=== PATIENT | female | born 2000 | race Caucasian/White ===

== ENCOUNTER 2019-05-09 09:23 | Emergency (ER) | payer OTHER ==
[2019-05-09 09:48] VITALS: BP 120/58; PULSE 93; TEMP 98; BMI 32.8
--- NOTE | 2019-05-09 09:59 | PDOC ---
History of Present Illness <Lindsay Fox - Last Filed: 05/09/19 10:41> - History of Present Illness Initial Comments: 05/09/19 10:16 19 yo F no PMH, , presenting with vaginal bleeding. Notes that her last menstrual period was 04/08/2019. About one week ago, patient felt nauseous and became concerned that she might be , but urine was negative. Today, patient passed a clot and thought she might be having a miscarriage ( although repeat urine was again negative at home). When asked whether this might be her period, patient states that she currently has vaginal pain, which she never has during her periods. Patient recently moved to the area, has first appointment with her new PCP this upcoming Monday. Denies CP, SOB, abd pain, fevers/chills, N/V, urinary changes. <Aleida Turcios - Last Filed: 05/09/19 10:50> - General Chief Complaint: Vaginal Bleeding Stated Complaint: POSSIBLE MISCARRIAGE Past History <Lindsay Fox - Last Filed: 05/09/19 10:41> - Psycho Social/Smoking Cessation Hx Smoking History: Never smoked Have you smoked in the past 12 months: No Hx Alcohol Use: No Drug/Substance Use Hx: No <Aleida Turcios - Last Filed: 05/09/19 10:50> - Past Medical History Allergies/Adverse Reactions: Allergies Allergy/AdvReac Type Severity Reaction Status Date / Time No Known Allergies Allergy Verified 05/09/19 09:44 Review of Systems - Review of Systems Comments:: 05/09/19 10:40 GENERAL/CONSTITUTIONAL: denies fever, chills, diaphoresis, generalized weakness , malaise, loss of appetite, weight change HEAD, EYES, EARS, NOSE AND THROAT: denies rhinorrhea, nasal congestion, throat pain, throat swelling, difficulty swallowing, mouth swelling, ear pain, eye pain , visual changes NEUROLOGIC: denies headache, focal weakness or paresthesias, dizziness, unsteady gait, seizure, mental status changes, bladder or bowel incontinence CARDIOVASCULAR: denies chest pain, syncope, palpitations, irregular heart rate, lightheadedness, peripheral edema RESPIRATORY: denies cough, shortness of breath, dyspnea with exertion, orthopnea , wheezing, stridor, hemoptysis GASTROINTESTINAL: denies abdominal pain, abdominal distension, nausea, vomiting , diarrhea, constipation, melena, hematochezia GENITOURINARY: endorses crampy vaginal pain. Denies dysuria, frequency, urgency , hesitancy, hematuria, flank pain, genital pain MUSCULOSKELETAL: denies myalgia, arthralgia, joint swelling, back pain, neck pain SKIN: denies rash, itching, pallor HEMATOLOGIC/IMMUNOLOGIC: denies easy bleeding, easy bruising, lymphadenopathy, frequent infections ENDOCRINE: denies unexplained weight gain, unexplained weight loss, heat intolerance, cold intolerance PSYCHIATRIC: denies anxiety, depression, suicidal or homicidal ideation, hallucinations <Aleida Turcios - Last Filed: 05/09/19 10:50> *Physical Exam - Vital Signs Last Vital Signs Temp Pulse Resp BP Pulse Ox 98 F 93 H 18 120/58 L 100 05/09/19 09:44 05/09/19 09:44 05/09/19 09:44 05/09/19 09:44 05/09/19 09:44 <Lindsay Foxgayle - Last Filed: 05/09/19 10:41> - Vital Signs Last Vital Signs Temp Pulse Resp BP Pulse Ox 98 F 93 H 18 120/58 L 100 05/09/19 09:44 05/09/19 09:44 05/09/19 09:44 05/09/19 09:44 05/09/19 09:44 - Physical Exam 05/09/19 10:36 GENERAL: Awake, alert, and fully oriented, in no acute distress. HEAD: Normal with no signs of trauma. EYES: Pupils equal, round and reactive to light, extraocular movements intact, sclera anicteric, conjunctiva clear. No lid lag. EARS, NOSE, THROAT: Ears normal, nares patent, oropharynx clear without exudates. NECK: Normal range of motion, supple without lymphadenopathy or JVD LUNGS: Breath sounds equal, clear to auscultation bilaterally. No wheezes, and no crackles. No accessory muscle use. HEART: Regular rate and rhythm, normal S1 and S2 without murmur, rub or gallop. ABDOMEN: Soft, nontender, non-distended, normoactive bowel sounds, negative guarding, negative rebound : pooled blood in the vault, closed os, no CMT or adnexal tenderness. MUSCULOSKELETAL: Normal range of motion at all joints. No bony deformities or tenderness. No CVA tenderness. UPPER EXTREMITIES: 2+ pulses, warm, well-perfused. No cyanosis. No clubbing. Cap refill <2 seconds. No peripheral edema. LOWER EXTREMITIES: 2+ pulses, warm, well-perfused. No calf tenderness. No peripheral edema. NEUROLOGICAL: Cranial nerves II-XII intact. Normal speech. Normal gait. PSYCHIATRIC: Cooperative. Good eye contact. Appropriate mood and affect. SKIN: Warm, dry, normal turgor, no rashes or lesions noted. <Aleida Turcios - Last Filed: 05/09/19 10:50> ED Treatment Course - ADDITIONAL ORDERS Additional order review: Laboratory Results 05/09/19 05/09/19 10:15 10:15 Urine Color Yellow Urine Appearance Cloudy Urine pH 7.0 Ur Specific [place] 1.025 Urine Protein Trace Urine Glucose (UA) Negative Urine Ketones Negative Urine Blood 3+ H Urine Nitrite Negative Urine Bilirubin Negative Urine Urobilinogen 0.2 Ur Leukocyte Esterase Trace Urine WBC (Auto) 10 Urine RBC (Auto) 19 Urine Casts (Auto) 9 U Epithel Cells (Auto) 10.9 Urine Bacteria (Auto) 145.9 Urine HCG, Qual Negative <Lindsay Fox - Last Filed: 05/09/19 10:41> Medical Decision Making - Medical Decision Making 05/09/19 10:19 Concern for vs intravaginal pathology v UTI v menstruation. - UA/UC/urine 05/09/19 10:37 Urine and UA unremarkable. Will give ibuprofen, recommend ibuprofen/ acetaminophen at home. <Aleida Turcios - Last Filed: 05/09/19 10:50> Discharge <Lindsay Fox - Last Filed: 05/09/19 10:41> - Discharge Information Problems reviewed: Yes - Admission No <Aleida Turcios - Last Filed: 05/09/19 10:50> - Discharge Information Clinical Impression/Diagnosis: Menses painful Condition: Stable Disposition: HOME - Follow up/Referral Referrals: [facility] [Provider Group] ON STAFF,NOT [Primary Care Provider] - - Patient Discharge Instructions Patient Printed Discharge Instructions: DI for Dysmenorrhea Additional Instructions: You were seen with crampy vaginal pain and bleeding. Your urine was negative. This pain is likely due to your period. Please keep your appointment with your new primary care doctor next week, and ensure that he provides you with an OBGYN as well. Take ibuprofen or acetaminophen as needed for pain. Return to the ED if you develop worsening symptoms.
--- NOTE | 2019-05-09 10:04 | PDOC ---
Attending Attestation - Resident Resident Name: TurciosAleida - ED Attending Attestation I have performed the following: I have examined & evaluated the patient, The case was reviewed & discussed with the resident, I agree w/resident's findings & plan - HPI HPI: 05/09/19 10:37 19-year-old female with no significant medical history presenting with general x1 episodes she says when she noticed. Associated with lower pelvic pain and cramping. Her LMP was 04/08/2019, usually regular. She has taken 2 home tests in the last 1 week and both have been negative. No nausea vomiting diarrhea no fevers or chills, no burning urgency or frequency. She is sexually active with her spouse, uses condoms for protection. She is awaiting a new provider to establish care with field crop farmer and plans to get Depo shot for contraception. - Physicial Exam PE: 05/09/19 10:02 Agree with the resident's HPI and PE as documented in the electronic medical record. NAD, well appearing, EOMI, PERRL, nl conjunctiva, anicteric; neck supple. lungs clear, RRR, abdomen soft nontender. no rebound, guarding. Back nontender. ABDI x4, no focal neuro deficits. No peripheral edema. normal color for ethnicity , WW[facility] pelvic exam done by resident see note 05/09/19 10:39 - Medical Decision Making 05/09/19 10:03 Vital Signs Temp Pulse Resp BP Pulse Ox 98 F 93 H 18 120/58 L 100 05/09/19 09:44 05/09/19 09:44 05/09/19 09:44 05/09/19 09:44 05/09/19 09:44 Female : normal external genitalia, no lesions, clear vaginal vault, no CMT, no adnexal tenderness. Smooth and pink cervix, closed. DDx female abdominal pain/VB: menses, ovarian cyst, ovarian torsion, TOA, UTI, pyelonephritis, STD/PID, Mitt[place]chmerz, anemia, electrolyte/metabolic derangements, DUB, ectopic , miscarriage, demise, subchorionic hematoma, retained POC, normal first trimester bleeding, Fibroid uterus, vaginitis, infection, electrolyte/metabolic derangements, anemia. VS wnl, normotensive, no tachy or hypoxia/respiratory distress. abdomen benign on reeval and no peritoneal findings, no VB here, controlled no lower abdominal pain, no RLQ tenderness to suggest appy clinically doubt intra abdominal infection/inflammation UA with blood, wbc 10 and rbc 19, could be contaminant. no acute urinary sx, so will f/u urine cultures neg preg test this is most likely day 1 of her menstrual cycle, marcos with last menstrual period 1 month ago and she has normal bleeding cycles nsaid x1 dose here for pain control pt verbalized understanding of impression and plan. Dispo: OB=radio program director followup, bleeding precautions; return to ED if persistent and heavy vaginal bleeding, persistent pelvic pain not relieved by your prescribed medications, dizziness, shortness of breath, new and persistent fevers, other foul smelling discolored vaginal discharge, or for any other concerns. 05/09/19 10:39
[2019-05-09 10:32] LABS: EPI CELLS 10.9 /HPF (0-5/HPF); HYALINE CASTS 9 /lpf (0-8); URINE APPEARANCE CLOUDY; URINE BACTERIA 145.9 /hpf (NEGATIVE); URINE BILIRUBIN NEGATIVE (NEGATIVE); URINE COLOR YELLOW; URINE GLUCOSE (UA) NEGATIVE (NEGATIVE); URINE KETONE NEGATIVE (NEGATIVE); URINE LEUK ESTERASE TRACE (NEGATIVE); URINE NITRITE NEGATIVE (NEGATIVE); URINE PROTEIN TRACE (NEGATIVE); URINE RBC 19 /hpf (0-4); URINE UROBILINOGEN 0.2 mg/dL (0.2-1.0); URINE WBC 10 /hpf (0-5)
[2019-05-09] MEDS ORDERED: IBUPROFEN 600 MG TABLET (FP) PO ONE ×2 (10:36→10:52)
== END 2019-05-09 11:02 | disposition home or self-care (01) ==
LOC: JER 09:23
DX: N94.6 Dysmenorrhea, unspecified (principal)
CPT/HCPCS: 81003; 84703; 87086; 99283-25